=== PATIENT | female | born 1965 | race Two or more races ===

== ENCOUNTER 2023-05-12 13:25 | Outpatient (AMB) | payer MEDICARE, MEDICAID, SELFPAY ==
--- NOTE | 2023-05-12 13:57 | A.SPINEOV_ITS ---
Intake Intake Visit Reasons: back pain and back cramps Intake Note: Ms. Jimenez is here today c/o low back pain and cramping. MRI done @ [facility]. Manager Nicu Required: No Assessment & Plan Assessment & Plan (1) Back pain: Code(s): M54.9 - Dorsalgia, unspecified Plan Dear colleague, On 05/12/2023, I saw Lyric Jimenez for chief complaint of right lumbar pain. She underwent an L4-S1 lumbar fusion in 2019. She was doing very well until approximately 3-6 months ago where she developed a right lumbar pain in the SI j oint region. The pain is constant. It is painful to get in and out of car. Is painful to get out of a chair. Laying in the supine position is most comfortable. She cannot lay on her side. In addition, she has short periods of severe cramps in that area that can happen at any moment without any predisposing factors. On exam, Thao test is positive. JONATHAN is positive. No neurological deficits from motor sensation and reflexes. An x-ray obtained today of the lumbar spine is compared to an x-ray of 01/31/2021 and shows a stable lumbar scoliosis above the previous fusion. In summary, this patient is suffering from pain in the right SI joint region. I made a referral to at [facility] and was to her for an SI joint injection. She will report to me the results. I spent 40 minutes in this consult for preparation, orders and discussing plan of care Brian Craig MD, PhD Sp[facility] Trained Neurosurgeon Director, [facility] Orders: Orders XR lumbar spine 4V min Today M54.9 - Dorsalgia, unspecified, Z98.1 - Arthrodesis status Coding Level of Care Code Est Pt Level 5 (13835) Diagnoses Back pain M54.9
== END 2023-05-12 14:47 | disposition home or self-care (01) ==
PROVIDERS: Visit Provider Neurological Surgery
DX: M54.9 Dorsalgia, unspecified (principal)
CPT/HCPCS: 99204; 99214

== ENCOUNTER 2023-05-12 13:25 | Outpatient (REF) | payer MEDICARE, MEDICAID, SELFPAY ==
--- NOTE | ~2023-05-12 | XR_ITS ---
EXAMINATION: XR LUMBOSACRAL SPINE WITH OBLIQUES CLINICAL INFORMATION: Arthrodesis status. COMPARISON: None available. TECHNIQUE: AP, lateral, flexion and extension views of the lumbar spine. FINDINGS: Rightward curvature of the lumbar spine. Lumbar spondylosis with moderate loss of disc space height notable at L2-L3. Posterior fixation with interdisc devices at L4, L5, S1. Hardware appears intact. Degenerative changes in the imaged lower thoracic spine. There is possible anterolisthesis of L5 on S1, difficult evaluate due to overlying bone and soft tissues. Grade 1 retrolisthesis of L2 on L3. Minimal grade 1 retrolisthesis of L3 on L4. XR/XR lumbar spine 4V min IMPRESSION: Posterior fixation with interdisc devices at L4, L5, S1. Hardware appears intact. Possible anterolisthesis of L5 on S1, difficult evaluate due to overlying bone and soft tissues. Multilevel lumbar spondylosis as detailed above.
== END 2023-05-12 13:26 | disposition home or self-care (01) ==
LOC: HO.HOSX 13:25
PROVIDERS: Visit Provider Neurological Surgery
DX: M54.9 Dorsalgia, unspecified (principal); Z98.1 Arthrodesis status
CPT/HCPCS: 72110